=== PATIENT | male | born 1945 | race Caucasian/White ===

== ENCOUNTER 2022-10-22 22:24 | Inpatient (IN) | payer MEDICARE, OTHER, SELFPAY ==
[2022-10-22 22:30] VITALS: BMI 25.7
[2022-10-22 22:34] VITALS: BP 170/82; PULSE 73; RESP 18; TEMP 36.3; O2SAT 95
[2022-10-22 23:00] VITALS: RESP 18; O2SAT 98
[2022-10-22] MEDS: ondansetron 2 mg/ML SDV 2 mL 4 MG IVP (23:00)
[2022-10-22] MEDS: sodium chloride 0.9% 1,000 ML 999 ML IV (23:00)
[2022-10-22] MEDS: morphine 4 mg/mL SDV 1 mL IVP (23:00)
[2022-10-22 23:08] LABS: Basophils # 0.1 10^3/uL (0.0-0.1); Basophils % 0.5 %; Eosinophils # 0.2 10^3/uL (0.0-0.8); Hematocrit 41.3 % (42.0-52.0); Lymphocytes # 1.1 10^3/uL (0.8-4.8); Lymphocytes % 11.1 %; Mean Corpuscular HGB Conc 33.9 g/dL (30.0-36.0); Mean Corpuscular Hemoglobin 32.3 pg (28.0-34.0); Mean Corpuscular Volume 95.2 fl (80-94); Mean Platelet Volume 9.6 fL (7.4-10.4); Monocytes # 0.7 10^3/uL (0.2-0.9); Monocytes % 7.1 %; Neutrophils # 7.78 10^3/uL (1.8-7.7); Nucleated Red Blood Cells % 0 %; Platelet Count 221 10^3/cmm (130-400); Red Blood Count 4.34 10^6/uL (4.1-5.3); Red Cell Distribution Width 12.3 % (12.1-15.1); White Blood Count 9.9 10^3/uL (4.0-10.0)
--- NOTE | 2022-10-22 23:11 | ED_ITS ---
HPI - General Adult General: Chief complaint: General Medical Stated complaint: Hernia Pain Time Seen by Provider: 10/22/22 22:31 Source: patient Mode of arrival: ambulatory Limitations: no limitations History of Present Illness: 76-year-old male with has a history of a inguinal hernia in the past he states that he is felt a knot where the hernia is he has been having pain over the last 3 to 4 hours he states pain is sharp in nature he rates it a 5 out of 10. He has had nausea denies any vomiting denies any diarrhea denies any fevers. Associated symptoms: Deny chest pain, dyspnea, headache(s) or rash Review of Systems Const: Denies: fever(s), chills, body aches or change in appetite Eyes: Denies: blurry vision or eye discomfort ENMT: Denies: throat pain or dental pain Card: Denies: chest pain Resp: Denies: dyspnea GI: Reports: abdominal pain : Denies: dysuria Musc: Denies: neck pain or back pain Skin/Breast: Denies: rash Neuro: Denies: headache(s) Psych: Denies: depression [place]/Lymph: Denies: easy bruising All/Imm: Denies: urticaria PFSH ED PFSH: Medical History Right groin hernia Family History Other Diabetes Heart disease Denies family history of Anesthesia complication Bleeding disorder Social History Smoking and tobacco status: never smoked Alcohol intake: never Lives independently: Yes Household members: significant other Current occupational status: retired History of recent travel: No Physical Exam Const: COMMON NORMALS: no acute distress, patient oriented x3 and healthy appearing HENMT: COMMON NORMALS: normocephalic and atraumatic HEAD & SCALP: normocephalic and atraumatic Eye: COMMON NORMALS: Equal, round and reactive pupils present and EOMs intact bilaterally PUPIL: Yes Equal, round and reactive pupils present Neck/C-Spine: COMMON NORMALS: full ROM and supple Chest: COMMONS NORMALS: normal inspection of the chest and normal palpation of entire chest wall Resp: COMMON NORMALS: normal respiratory effort, No retractions, No use of accessory muscles and clear to auscultation bilaterally AUSCULTATION: clear to auscultation bilaterally Cardio: COMMON NORMALS: regular rate, regular rhythm and No murmurs present (Cardio) RATE: regular rate RHYTHM: regular rhythm GI: COMMON NORMALS: Normal to inspection, nondistended, normoactive bowel sounds present and Soft to palpation PALPATION: Yes Soft to palpation Extremity: COMMON NORMALS: normal to inspection and full ROM Neuro: COMMON NORMALS: patient oriented x3, moves all extremities and no focal motor deficits Psych: COMMON NORMALS: mental status grossly normal, Normal thought process present and cooperative THOUGHT PROCESS: Normal thought process present Skin: COMMON NORMALS: no rashes or lesions noted and no wounds GENERAL SKIN EXAM: no rashes or lesions noted Course Vital Signs: Vital signs: Vital Signs Temperature 97.4 F L 10/22/22 22:34 Pulse Rate 85 10/23/22 02:15 Respiratory Rate 17 10/23/22 02:15 Blood Pressure 165/98 10/23/22 02:15 Pulse Oximetry 97 10/23/22 02:15 Oxygen Delivery Me thod 10/22/22 22:34 MDM - General Adult Medical Decision Making Patient presents here with incarcerated right inguinal hernia is able to partial ly reduce the hernia still has a portion has not reduced Dr. Sierra came and saw the patient will admit at this time likely take to the OR in the morning. Patient's been stable while here. Lab Data 10/22/22 23:00 10/22/22 23:00 Radiology Impressions Abdomen/Pelvis CT 10/22/22 23:17 IMPRESSION: 1. Prominent fluid throughout the small bowel with borderline dilation to 3 cm, suggestive of an evolving obstruction, potentially low-grade, with a possible transition point secondary to a right inguinal hernia containing bowel, please correlate for reduction. 2. Prostate gland enlarged. 3. Cardiomegaly. 4. Coronary artery atherosclerotic calcifications. 5. Large hiatal hernia. 6. Bibasilar atelectasis versus minimal infiltrate. Laboratory Results WBC 9.9 10^3/uL (4.0-10.0) 10/22/22 23:00 RBC 4.34 10^6/uL (4.1-5.3) 10/22/22 23:00 Hgb 14.0 g/dL (11.7-16.6) 10/22/22 23:00 Hct 41.3 % (42.0-52.0) L 10/22/22 23:00 MCV 95.2 fl (80-94) H 10/22/22 23:00 MCH 32.3 pg (28.0-34.0) 10/22/22 23:00 MCHC 33.9 g/dL (30.0-36.0) 10/22/22 23:00 RDW 12.3 % (12.1-15.1) 10/22/22 23:00 Plt Count 221 10^3/cmm (130-400) 10/22/22 23:00 MPV 9.6 fL (7.4-10.4) 10/22/22 23:00 Neut % (Auto) 79.0 % 10/22/22 23:00 Lymph % (Auto) 11.1 % 10/22/22 23:00 [place] % (Auto) 7.1 % 10/22/22 23:00 Eos % (Auto) 2.0 % 10/22/22 23:00 Baso % (Auto) 0.5 % 10/22/22 23:00 Neut # (Auto) 7.78 10^3/uL (1.8-7.7) H 10/22/22 23:00 Lymph # (Auto) 1.1 10^3/uL (0.8-4.8) 10/22/22 23:00 [place] # (Auto) 0.7 10^3/uL (0.2-0.9) 10/22/22 23:00 Eos # (Auto) 0.2 10^3/uL (0.0-0.8) 10/22/22 23:00 Baso # (Auto) 0.1 10^3/uL (0.0-0.1) 10/22/22 23:00 Nucleated RBC % (auto) 0 % 10/22/22 23:00 Nucleated RBCs # 0.0 /100WBC 10/22/22 23:00 Sodium 137 mmol/L (136-145) 10/22/22 23:00 Potassium 3.8 mmol/L (3.5-5.1) 10/22/22 23:00 Chloride 99 mmol/L (98-107) 10/22/22 23:00 Carbon Dioxide 27 mmol/L (22-29) 10/22/22 23:00 Anion Gap 14.8 (5-19) 10/22/22 23:00 BUN 21 mg/dL (8-23) 10/22/22 23:00 Creatinine 0.9 mg/dL (0.7-1.2) 10/22/22 23:00 GFR Calculation Not Reportable 10/22/22 23:00 Glucose 135 mg/dL (65-115) H 10/22/22 23:00 Calculated Osmolality 289 mOsm/kg (285-295) 10/22/22 23:00 Lactate 1.1 mmol/L (0.5-2.2) 10/22/22 23:27 Calcium 9.2 mg/dL (8.5-10.5) 10/22/22 23:00 Total Bilirubin 0.5 mg/dL (0.15-1.2) 10/22/22 23:00 AST 24 U/L (0-40) 10/22/22 23:00 ALT 19 U/L (0-41) 10/22/22 23:00 Alkaline Phosphatase 100 U/L (40-130) 10/22/22 23:00 Total Protein 7.1 g/dL (6.6-8.7) 10/22/22 23:00 Albumin 4.3 g/dL (3.5-5.2) 10/22/22 23:00 Globulin 2.8 g/dL (1.3-4.6) 10/22/22 23:00 Lipase 20 U/L (13-60) 10/22/22 23:00 Urine Color Yellow (Yellow) 10/23/22 00:41 Urine Appearance Clear (CLEAR) 10/23/22 00:41 Urine pH 7 (5-7) 10/23/22 00:41 Ur Specific [place] 1.015 (1.005-1.030) 10/23/22 00:41 Urine Protein Neg (Negative) 10/23/22 00:41 Urine Glucose (UA) Norm (Normal) 10/23/22 00:41 Urine Ketones Negative (Negative) 10/23/22 00:41 Urine Blood Trace (Negative) H 10/23/22 00:41 Urine Nitrate Negative (Negative) 10/23/22 00:41 Urine Bilirubin Neg (Negative) 10/23/22 00:41 Urine Urobilinogen Norm mg/dL (Negative) 10/23/22 00:41 Ur Leukocyte Esterase Negative (Negative) 10/23/22 00:41 Urine RBC 0-4 /hpf (0-2) H 10/23/22 00:41 Urine WBC None /hpf (0-5) 10/23/22 00:41 Ur Squamous Epith Cells 0-4 /hpf (0-5) H 10/23/22 00:41 Amorphous Sediment Not Reportable 10/23/22 00:41 Urine Bacteria None /hpf (NONE) 10/23/22 00:41 Urine Mucus 1+ /hpf 10/23/22 00:41 Discharge Plan Discharge Patient Disposition: Admitted As Inpatient Clinical Impression: Incarcerated hernia Condition: Stable Coding Level of Care Code ED Grain Broker for Rocio Fwd Exam Comprehensive
--- NOTE | 2022-10-22 23:17 | CTR_ITS ---
PROCEDURE INFORMATION: Exam: CT Abdomen And Pelvis With Contrast Exam date and time: 10/23/2022 12:06 AM Age: 76 years old Clinical indication: Abdominal pain; Localized; Lower; Prior surgery; Surgery type: RT inguinal hernia; Patient HX: C/O RT groin pain. TECHNIQUE: Imaging protocol: Computed tomography of the abdomen and pelvis with contrast. Radiation optimization: All CT scans at this facility use at least one of these dose optimization techniques: automated exposure control; mA and/or kV adjustment per patient size (includes targeted exams where dose is matched to clinical indication); or iterative reconstruction. Contrast material: OMNI 350; Contrast volume: 100 ml; Contrast route: INTRAVENOUS (IV); COMPARISON: CT abdomen pelvis w con* [id number] 11/04/2019 2:07 PM RADIATION DOSE METRICS: Total DLP (mGy-cm): 684.03 FINDINGS: Lungs: Bibasilar atelectasis versus minimal infiltrate. Heart: Cardiomegaly. Coronary artery atherosclerotic calcifications. Diaphragm: Large hiatal hernia. Liver: Normal. No mass. Gallbladder and bile ducts: Normal. No calcified stones. No ductal dilation. Pancreas: Normal. No ductal dilation. Spleen: Normal. No splenomegaly. Adrenal glands: Normal. No mass. Kidneys and ureters: Normal. No hydronephrosis. Stomach and bowel: Unremarkable. No obstruction. No mucosal thickening. Appendix: No evidence of appendicitis. Intraperitoneal space: Unremarkable. No free air. No significant fluid collection. Vasculature: Unremarkable. No abdominal aortic aneurysm. Lymph nodes: Unremarkable. No enlarged lymph nodes. Urinary bladder: Unremarkable as visualized. Reproductive: Prostate gland enlarged. Bones/joints: Unremarkable. No acute fracture. Soft tissues: Prominent fluid throughout the small bowel with borderline dilation to 3 cm, suggestive of an evolving obstruction, potentially low-grade, with a possible transition point secondary to a right inguinal hernia containing bowel, please correlate for reduction. CT/CT abdomen pelvis w con* [id number] IMPRESSION: 1. Prominent fluid throughout the small bowel with borderline dilation to 3 cm, suggestive of an evolving obstruction, potentially low-grade, with a possible transition point secondary to a right inguinal hernia containing bowel, please correlate for reduction. 2. Prostate gland enlarged. 3. Cardiomegaly. 4. Coronary artery atherosclerotic calcifications. 5. Large hiatal hernia. 6. Bibasilar atelectasis versus minimal infiltrate.
[2022-10-22 23:29] LABS: Alanine Aminotransferase 19 U/L (0-41); Albumin Level 4.3 g/dL (3.5-5.2); Alkaline Phosphatase 100 U/L (40-130); Anion Gap 14.8 (5-19); Aspartate Amino Transferase 24 U/L (0-40); Blood Urea Nitrogen 21 mg/dL (8-23); Calcium 9.2 mg/dL (8.5-10.5); Carbon Dioxide 27 mmol/L (22-29); Chloride 99 mmol/L (98-107); Globulin 2.8 g/dL (1.3-4.6); Glucose 135 mg/dL (65-115); Lipase 20 U/L (13-60); Osmolality Calculated 289 mOsm/kg (285-295); Potassium 3.8 mmol/L (3.5-5.1); Sodium 137 mmol/L (136-145); Total Bilirubin 0.5 mg/dL (0.15-1.2); Total Protein 7.1 g/dL (6.6-8.7)
[2022-10-22 23:54] LABS: Lactate (Lactic Acid level) 1.1 mmol/L (0.5-2.2)
[2022-10-23] VITALS (27 sets, daily range): BP systolic 91–165; BP diastolic 48–119; PULSE 67–137; RESP 14–24; TEMP 36.4–37.1; O2SAT 93–100
[2022-10-23] MEDS: iohexol 350 mg/mL 500 mL Btl (per mL) IV (00:09)
[2022-10-23] MEDS: midazolam 1 mg/mL INJ 2 mL IVP (00:29)
[2022-10-23] MEDS: midazolam 1 mg/mL INJ 2 mL 0.5 MG IVP (01:12)
[2022-10-23] MEDS: HYDROmorphone 1 mg/mL INJ 1 mL IVP (01:14)
[2022-10-23 01:33] LABS: Add Urine Microscopic? YES; Bilirubin Urine Neg (Negative); Blood Urine Trace (Negative); Glucose Urine UA Norm (Normal); Ketones Urine Negative (Negative); Leukocyte Esterase Urine Negative (Negative); Nitrate Urine Negative (Negative); Protein Urine Neg (Negative); RBC Urine 0-4 /hpf (0-2); Specific Gravity, Urine 1.015 (1.005-1.030); Squamous Epithelial Cell Urine 0-4 /hpf (0-5); Urine Appearance Clear (CLEAR); Urine Color Yellow (Yellow); Urobilinogen Urine Norm (Negative); pH Urine 7 (5-7)
[2022-10-23 01:34] LABS: Add Urine Culture? No; Mucus Urine 1+ /hpf
--- NOTE | 2022-10-23 01:39 | P.HP_ITS ---
Providers/Chief Complaint Admitting Physician: Dharmesh Sierra MD Chief Complaint: Hernia Pain History of Present Illness Mr.Ed Jovany Joshi is a pleasant 76 year old male presents to the emergency department with worsening right groin pain likely related to underlying recurrent right inguinal hernia, patient has been lifting earlier today and has been experiencing worsening pain at that area for a day or so couple of attempts were done by Dr. Beltran to reduce the hernia and I believe he was able to reduce the acute on top of chronic component as by the time I am evaluating the patient is already feeling better. Further work-up was done that showed unremarkable blood, no evidence of leukocytosis or increased lactic acid, a CT of the abdomen pelvis was done and did show; 1. Prominent fluid throughout the small bowel with borderline dilation to 3 cm, suggestive of an evolving obstruction, potentially low-grade, with a possible transition point secondary to a right inguinal hernia containing bowel, please correlate for reduction. 2. Prostate gland enlarged. 3. Cardiomegaly. 4. Coronary artery atherosclerotic calcifications. 5. Large hiatal hernia. 6. Bibasilar atelectasis versus minimal infiltrate. Previous hernia repair with mesh placement 4 years ago. Patient was seen and evaluated in the ER room #13 Review of Systems General: Reports: 10 or more systems reviewed and unremarkable except in HPI and below Medications/Allergies Home Medications Medication Instructions Recorded Confirmed Last Taken Type aspirin 81 mg tablet,delayed 81 mg PO ONCE 11/28/19 11/30/19 Unknown History release atorvastatin 10 mg tablet 10 mg PO ONCE 11/28/19 11/30/19 Unknown History cholecalciferol (vitamin D3) 10 400 unit PO ONCE 11/28/19 11/30/19 Unknown History mcg (400 unit) capsule lisinopril 2.5 mg tablet 2.5 mg PO ONCE 11/28/19 11/30/19 Unknown History multivitamin 1 tab PO QAM 11/28/19 11/30/19 Unknown History garlic 1,000 mg capsule 1,000 mg PO DAILY 10/23/22 10/23/22 10/22/22 12:00 History Allergies Allergy/AdvReac Type Severity Reaction Status Date / Time No Known Allergies Allergy Verified 11/28/19 15:09 PFSH Acute PFSH: Medical History Right groin hernia Family History Other Diabetes Heart disease Denies family history of Anesthesia complication Bleeding disorder Social History Smoking and tobacco status: never smoked Alcohol intake: never Lives independently: Yes Household members: significant other Current occupational status: retired History of recent travel: No Vitals/I&O/Wt Last Vital Signs Temp 97.4 F L 10/22/22 22:34 Pulse 73 10/22/22 22:34 Resp 15 10/23/22 01:14 BP 170/82 10/22/22 22:34 Pulse Ox 96 10/23/22 01:14 O2 Del Method 10/22/22 22:34 Weight last 48 hrs Weight 200 lb Physical Exam Narrative: Patient is conscious alert oriented X3 No apparent distress BMI 25.7 Head and neck examination PERRLA no masses no cervical lymphadenopathy no jaundice Cardiac examination audible S1-S2 no murmurs no gallops no arrhythmias Chest is clear bilateral,abscence of Rhonchi or wheezes,no surgical emphysema Abdomen nontender nondistended soft no organomegaly guarding or rigidity/no signs of peritonitis Right chronic incarcerated hernia partially reducible Extremities no cyanosis no clubbing no edema Data 10/22/22 23:00 10/22/22 23:00 A&P Assessment and plan (1) Right groin hernia: Attempted to reduce partially bedside patient had some relief Plan to take the patient for surgery for open right inguinal hernia repair with possible mesh placement IV antibiotic N.p.o. Ice packs on the right groin After thorough history physical examination and reviewing the chart and images of the CT scan with my personal interpretation likely the patient has an underl giovanny chronic incarcerated hernia as I do not see any signs of edema or pneumatosis, I counseled the patient for Right open groin hernia repair with mesh placement, were indications, risks including risk of injuring the contents of the spermatic cord,vas deferens and blood supply of the testicle, alt ernatives and benefits.Patient did agree to proceed with surgery Informed consent per chart Assurance and education All questions have been answered and all concerns have been addressed to patient's satisfaction. Attestations Medical Necessity Statement*: Observation status Coding Level of Care Code Acute Concert Or Lecture Hall Manager for g Fwd Diagnoses Right groin hernia K40.90
[2022-10-23] MEDS: piperacillin-tazobactam 3.375 GM in sodium chloride 0.9% (plus) 50 ML IV ×3 (04:49→19:40)
[2022-10-23] MEDS: sodium chloride 0.9% 1,000 ML 125 ML IV (05:13)
[2022-10-23] MEDS: morphine 4 mg/mL SDV 1 mL 2 MG IVP ×2 (05:16→09:18)
[2022-10-23] MEDS: ondansetron 2 mg/ML SDV 2 mL 4 MG IVP ×2 (07:39→10:58)
[2022-10-23] MEDS: lisinopril 2.5 mg Tablet PO (08:12)
--- NOTE | 2022-10-23 10:37 | PC.NURSE ---
surgical pt taken down to surgery.
[2022-10-23] MEDS: sodium chloride 0.9% 1,000 ML 30 ML IV (10:58)
--- NOTE | 2022-10-23 11:12 | P.ANESASSM_ITS ---
Pre-Anesthetic Assessment Height/Weight: Height 1.88 m Weight 90.718 kg Temp Pulse Resp BP Pulse Ox O2 Del Method 98.7 F 76 16 134/81 96 10/23/22 10:47 10/23/22 10:47 10/23/22 10:47 10/23/22 10:47 10/23/22 10:47 10/23/22 10:47 Operation Date: 10/23/22 12:00 Proposed Procedures p Inguinal Hernia Repair Open Inguinal Hernia Repair with Possible Mesh placement(Right) - Dharmesh Sierra MD Familial anesthetic complications: None Was Beta Kamron taken within 24 hours: N/A Was Clonidine taken within 24 hours: N/A Last intake: Intake Last Liquid Date 10/22/22 Last Liquid Time 21:00 Last Solid Date 10/22/22 Last Solid Time 16:00 Social No alcohol and No tobacco Exam alert, oriented x 3, clear to auscultation bilaterally and regular rate & rhythm Airway Mallampati: Class I Dentition: full CV/HEM Hypertension incidental cardiomegaly seen on CT - patient states no heart history GI Hiatal Hernia (seen on abdominal CT - patient denies experiencing GERD) Last vomited food this morning. States he vomited up a little stomach acid just earlier. Anesthetic Plan ASA status: 3 Anesthesia: General Other: RSI Risk of > 500 ml blood loss (7ml/kg in children): No Medications/Allergies Home Medications Medication Instructions Recorded Confirmed Last Taken Type aspirin 81 mg tablet,delayed 81 mg PO DAILY 11/28/19 10/23/22 10/22/22 08:00 History release atorvastatin 10 mg tablet 10 mg PO DAILY 11/28/19 10/23/22 10/22/22 08:00 History cholecalciferol (vitamin D3) 10 400 unit PO DAILY 11/28/19 10/23/22 10/22/22 08:00 History mcg (400 unit) capsule lisinopril 2.5 mg tablet 2.5 mg PO DAILY 11/28/19 10/23/22 10/22/22 08:00 History multivitamin 1 tab PO QAM 11/28/19 10/23/22 10/22/22 12:00 History garlic 1,000 mg capsule 1,000 mg PO DAILY 10/23/22 10/23/22 10/22/22 12:00 History Allergies Allergy/AdvReac Type Severity Reaction Status Date / Time No Known Allergies Allergy Verified 11/28/19 15:09 Current Medications Generic Name Dose Route Start Last Admin Trade Name Freq PRN Reason Stop Dose Admin Piperacillin Sod/Tazobactam 50 mls @ 12.5 mls/hr 10/23/22 02:30 10/23/22 09:13 Sod 3.375 gm/ Sodium Chloride IV Infused Q8H ANABEL Infusion Protocol Sodium Chloride 1,000 mls @ 125 mls/hr 10/23/22 05:00 10/23/22 05:13 Sodium Chloride 0.9% IV 125 mls/hr .Q8H ANABEL Administration Sodium Chloride 1,000 mls @ 30 mls/hr 10/23/22 10:45 10/23/22 10:58 Sodium Chloride 0.9% IV 10/24/22 10:44 30 mls/hr .Q24H ANABEL Administration Lisinopril 2.5 mg 10/23/22 09:00 10/23/22 08:12 Lisinopril 2.5 Mg Tablet PO 2.5 mg DAILY ANABEL Administration Morphine Sulfate 2 mg 10/23/22 02:13 10/23/22 09:18 Morphine 4 Mg/Ml Sdv 1 Ml IVP 2 mg Q4H PRN Administration SEVERE PAIN Ondansetron HCl 4 mg 10/23/22 06:30 10/23/22 07:39 Ondansetron 2 Mg/Ml Sdv 2 Ml IVP 4 mg Q6H PRN Administration NAUSEA AND VOMITING Ondansetron HCl 4 mg 10/23/22 10:45 10/23/22 10:58 Ondansetron 2 Mg/Ml Sdv 2 Ml IVP 4 mg Q5M PRN Administration NAUSEA AND VOMITING PFSH Anesthesia Medical History Right groin hernia Family History Other Diabetes Heart disease Denies family history of Anesthesia complication Bleeding disorder Social History Smoking and tobacco status: never smoked Alcohol intake: never Lives independently: Yes Household members: significant other Current occupational status: retired History of recent travel: No Data Anesthesia 10/22/22 23:00 10/22/22 23:00 Short CBC 10/22/22 Range/Units 23:00 WBC 9.9 (4.0-10.0) 10^3/uL Hgb 14.0 (11.7-16.6) g/dL Hct 41.3 L (42.0-52.0) % MCV 95.2 H (80-94) fl Plt Count 221 (130-400) 10^3/cmm Neut % (Auto) 79.0 % Neut # (Auto) 7.78 H (1.8-7.7) 10^3/uL BMP 10/22/22 23:00 Sodium 137 Potassium 3.8 Chloride 99 Carbon Dioxide 27 BUN 21 Creatinine 0.9 Glucose 135 H Calcium 9.2 Liver Function 10/22/22 Range/Units 23:00 Total Bilirubin 0.5 (0.15-1.2) mg/dL AST 24 (0-40) U/L ALT 19 (0-41) U/L Alkaline Phosphatase 100 (40-130) U/L Albumin 4.3 (3.5-5.2) g/dL Urine 10/23/22 Range/Units 00:41 Urine Color Yellow (Yellow) Urine Appearance Clear (CLEAR) Urine pH 7 (5-7) Ur Specific [place] 1.015 (1.005-1.030) Urine Protein Neg (Negative) Urine Glucose (UA) Norm (Normal) Urine Ketones Negative (Negative) Urine Nitrate Negative (Negative) Urine Bilirubin Neg (Negative) Ur Leukocyte Esterase Negative (Negative) Urine RBC 0-4 H (0-2) /hpf Urine WBC None (0-5) /hpf Cardiac Studies: No Data to Display
[2022-10-23] MEDS: lidocaine 1% INJ 20 mL INJECTION (12:37)
[2022-10-23] MEDS: acetaminophen 1,000 MG/100 ML PIGGYBACK 400 MG IV (12:40)
--- NOTE | 2022-10-23 13:15 | SUR.OPER ---
[id number] dr daniels requested a consult with dr barnes.
--- NOTE | 2022-10-23 13:16 | SUR.OPER ---
1314 dr barnes at bedside
--- NOTE | 2022-10-23 13:45 | XRR_ITS ---
PROCEDURE INFORMATION: Exam: XR Abdomen Exam date and time: 10/23/2022 1:51 PM Age: 76 years old Clinical indication: Screening exam; Post surgical status; Instrument count; Prior surgery; Surgery date: Post-operative (0-2 days) TECHNIQUE: Imaging protocol: Radiologic exam of the abdomen. Views: Frontal supine view of the abdomen. 1 View. COMPARISON: CT abdomen pelvis w con* [id number] 10/23/2022 12:06 AM FINDINGS: Tubes, catheters and devices: No radiopaque foreign body such as an instrument or needle. Gastrointestinal tract: Gas in small bowel loops, less distended than on the prior comparison exam. Organs: Excreted contrast in the urinary bladder. Bones/joints: Curvature of the lumbar spine convex to the right associated with multilevel degenerative changes. Soft tissues: Recent right groin surgery with an incision closed with skin lorenza. XR/XR abdomen 1V* [id number] IMPRESSION: No radiopaque foreign body.
--- NOTE | 2022-10-23 13:53 | P.OP_ITS ---
Operative Report Date of procedure: October 23, 2022 Pre-op diagnosis: Right groin hernia Post-op diagnosis: Right femoral hernia with incarcerated peritoneal sac,no evidence of bowel ischemia Procedure done: Exploration of the right groin Right open femoral hernia repair without mesh placement Right femoral vein ligation(see separate dictation for Dr. Zepeda) Specimens removed/disposition: Right femoral hernia sac Surgeon: Dharmesh Sierra MD-Dr. Zepeda Surgeon Tank Car Cleaner Tank Car Cleaner: Surgical rafi Lowery Estimated blood loss (mL): 100 Procedure: Patient was identified in the holding area and right groin was marked by myself, In-N-Out catheter was inserted revealing clear urine prior to the procedure, antibiotic was given with induction, endotracheal tube was placed per anesthesia, prep and drape of both groins and lower abdomen and scrotum including the genitalia was done under the usual sterile technique. Timeout was done verifying the patient's name/date of /planned procedure destination after the procedure, all were in agreement. SCDs confirmed to be functioning, preoperative antibiotics administered per protocol, and beta shadi protocol was confirmed. I started with a right groin incision 1-1/2 finger above the inguinal ligament towards the pubic tubercle coinciding with the previous right groin scar, noticed to have an incarcerated hernia sac towards the medial aspect of the groin, extensive scarring was noticed, during dissection inadvertently the right femoral vein was injured during dissection yet proximal and distal control was achieved immediately, the dissection revealed that the hernia sac is a femoral hernia sac. There was no other hernia evident. At This point I decided to open the hernia sac trim the edges as it did show some ischemic changes and was sent for permanent pathology, the communication with the abdominal cavity revealed no evidence of succus or serosanguineous output and the bowel was maintained to be viable. In fact there was no evidence of incarcerated bowels. I elected to close the remaining viable sac using continuous 2-0 Vicryl that was reduced back to the abdominal cavity without complications. Extensive scar tissues were appreciated. And meticulous dissection was done. Appropriate dissection and exposure I elected to call for Dr. Zepeda for further evaluation of the proximal and distal portions of the femoral vein for potential further dissection and repair versus ligation, please see separate dictation for further vascular surgery portion of the procedure. Before arrival with Dr. Zepeda already placed interrupted PDS sutures to close the femoral canal. Not encroaching on any neurovascular compartment. Copious and thorough irrigation was achieved there was no evidence of bleeding and appropriate closure in layers using 2-0 Vicryl in a continuous fashion followed by skin lorenza. Lidocaine 1% was injected A KUB was obtained towards the end of the procedure to confirm no evidence of retained foreign objects Also counts of instruments, sponges and needles were completed at the end of the procedure. I elected to place a [place] cath at the end of the procedure revealing clear urine. Scrotal support was then placed Intact dorsalis pedis artery pulsation was appreciated towards the end of the procedure of the right lower extremity Patient tolerated the procedure well and was taken to the recovery area after extubation I was present for the whole entire procedure
[2022-10-23] MEDS: fentaNYL 50 mcg/mL INJ 2mL IVP ×2 (14:17→14:25)
[2022-10-23] MEDS: haloperidol inj 5 mg/mL INJ 1 mL IVP (14:40)
--- NOTE | 2022-10-23 14:57 | SUR.PHASEI ---
14:13 RECEIVED PT FROM OR STAFF.AIRWAY PATENT WITH GOOD VENTILATION. PT APPEARS CONFUSED PULLING AT BLANKETS . 14:17 MEDICATED PER ANESTHESIA. 14:40 RE-MEDICATED PER DOCTOR MAURO.
[2022-10-23] MEDS: midazolam 1 mg/mL INJ 2 mL 2 MG IVP (15:15)
--- NOTE | 2022-10-23 15:48 | SUR.PHASEI ---
15:30 PT TRANSPORTED TO BED 262. BEDSIDE REPORT GIVEN TO TL GILBERT. PT WITH ROM AND SENSATION ALL 4 EXTREMITIES.DRESSING INTACT WITH NO FURTHER DRAINAGE NOTED. PT RESPONDS TO VERBAL, STATING HE WANTS SOMETHING TO DRINK. ICE CHIPS GIVEN. SIDE RAILS UP.
--- NOTE | 2022-10-23 15:52 | ANE.PACU2 ---
Inpatient post-anesthesia follow up: Airway intact: Yes Vital signs: Temperature 98.7 F Pulse Rate 82 Respiratory Rate 18 Blood Pressure 103/58 Pulse Oximetry 97 Oxygen Delivery Me thod Nasal Cannula Oxygen Flow Rate 4 Fraction of Inspir ed Oxygen Hydration adequate: Yes Nausea and vomiting: No Pain level: 1 Mental status: Baseline
[2022-10-23] MEDS: enoxaparin 40 mg/0.4 mL Syringe SUBCUT (16:49)
[2022-10-23] MEDS: sodium chloride 0.9% 1,000 ML 75 ML IV (19:40)
--- NOTE | 2022-10-23 20:42 | PC.NURSE ---
Patient is very anxious about going home. He keeps tugging at his catheter wanting it out. Wanting to go pee in the bathroom so that way he can go home. He is showing signs of confusion on to why he cant go home and why he has a catheter. I helped him set up on the side of the bed because he wanted to get up. Patient is now laying back in the bed.
[2022-10-23] MEDS: HYDROcodone-acetaminophen 5-325 mg Tablet 1 TAB PO (21:43)
[2022-10-24] VITALS: BP 116/68; PULSE 81; RESP 16; TEMP 36.6; O2SAT 95
[2022-10-24 02:13] LABS: Hemoglobin 11.4 g/dL (11.7-16.6)
[2022-10-24 02:33] LABS: Anion Gap 10.3 (5-19); Blood Urea Nitrogen 15 mg/dL (8-23); Calcium 8.4 mg/dL (8.5-10.5); Carbon Dioxide 24 mmol/L (22-29); Chloride 106 mmol/L (98-107); Glucose 137 mg/dL (65-115); Osmolality Calculated 285 mOsm/kg (285-295); Potassium 4.3 mmol/L (3.5-5.1); Sodium 136 mmol/L (136-145)
[2022-10-24 02:45] VITALS: BP 131/69; PULSE 89; RESP 18; TEMP 36.7; O2SAT 95
[2022-10-24] MEDS: piperacillin-tazobactam 3.375 GM in sodium chloride 0.9% (plus) 50 ML IV (03:39)
[2022-10-24 04:00] VITALS: BP 120/60; PULSE 65; RESP 18; TEMP 36.7; O2SAT 95
[2022-10-24] MEDS: HYDROcodone-acetaminophen 5-325 mg Tablet 1 TAB PO (04:43)
--- NOTE | 2022-10-24 06:49 | P.PN_ITS ---
Subjective Subjective: Patient showed some delirium postoperatively yesterday. A sitter one-on-one was brought as a precautionary measure. Per nursing staff overnight no acute events. Continues to have stable vital signs, tolerating p.o. intake and adequate urine output. Medications: Reviewed: Yes Vitals/I&O/Wt Last Vital Signs Temp 98.1 F 10/24/22 04:00 Pulse 65 10/24/22 04:00 Resp 18 10/24/22 04:00 BP 120/60 10/24/22 04:00 Pulse Ox 95 10/24/22 04:00 O2 Del Method 10/24/22 02:45 O2 Flow Rate 2 10/24/22 02:45 10/23/22 10/23/22 10/24/22 14:59 22:59 06:59 Intake Total 600 / 600 1491 / 2091 530 / 2621 Output Total 475 / 475 450 / 925 800 / 1725 Balance 125 / 125 1041 / 1166 -270 / 896 Weight last 48 hrs Weight 200 lb Physical Exam Narrative: Patient is conscious alert oriented X3 No apparent distress BMI 26 Head and neck examination PERRLA no masses no cervical lymphadenopathy no jaundice Cardiac examination audible S1-S2 no murmurs no gallops no arrhythmias Chest is clear bilateral,abscence of Rhonchi or wheezes,no surgical emphysema Abdomen nontender nondistended soft no organomegaly guarding or rigidity/no signs of peritonitis Mild bruise at the incision site but no hematoma Extremities no cyanosis no clubbing no edema Urinary Catheter Management: Straight: Cath Placed During This Visit: no Reason for Continuing Indwelling Catheter: Required Immobilization for Trauma or Surgery or Anesthesia Data 10/24/22 01:41 10/24/22 01:41 A&P Assessment and plan (1) Incarcerated hernia: Assessment 76 years old gentleman status post open right groin exploration with femoral her cayla repair and ligation of femoral vein. Plan DC Polk catheter Advance diet as tolerated Continue close monitoring (sitter one-on-one) Reevaluate through today for potential discharge home Wean oxygen to room air Continue antimicrobial therapy Assurance and education All questions have been answered and all concerns have been addressed to patient's satisfaction. Attestations Medical Necessity Statement*: Patient requiring inpatient hospitalization passing 2 midnights for perioperative care Coding Level of Care Code Acute Grout Worker for Chg Fwd Diagnoses Incarcerated hernia K46.0
[2022-10-24 08:00] VITALS: BP 139/54; PULSE 73; RESP 15; O2SAT 99
--- NOTE | 2022-10-24 10:26 | USCV_ITS ---
Adi, Ed Age: 76 Gender: M : 1945 Exam Date: 10/24/2022 11:04 Ordering Phys: Dharmesh Sierra MD Technologist: CT Exam Location: [facility] – [place] Indication: hernia repair sx yesterday HISTORY: hernia repair sx yesterday, rt groin PROCEDURES: Venous duplex imaging was performed in only the right lower extremity. FINDINGS: There is dvt involving the rt cfv, fv prx and prof. This appears acute CONCLUSIONS Acute DVT right common femoral, femoral and deep femoral veins. Popliteal appears patent Small pTV and peroneal appear patent. D/w Dr. Trujillo 10/24/22 at 1340 Jerman Kyle MD (Electronically Signed) Final Date: 24 October 2022 13:48 Amended: 24 October 2022 13:50 C
--- NOTE | 2022-10-24 10:29 | PC.CHAP ---
Pastoral Care Encounter/Spiritual Assessment Type of Contact [] Declined it architecture analyst visit [] Patient/Family/Request visit [] Outpatient visit [] Follow-up visit [] Physician referral [] Code/Alert [x] Routine visit [] Staff referral [] Actively dying [] Patient sleeping [] Family support [] [] Out of room [] Palliative care [] [x] Receiving care in room [] Pre-surgical visit [] Trauma [] Long length of stay [] ICU visit [] Other: Relational/Emotional Strength [] Patient feels connected with others/family/visitors/staff [x] Distress [x] Loneliness/isolation [] Abandonment Spirituality of Patient [x] Person of Myranda [] Attends Lutheran of their Myranda [] Believes in Prayer [] Reads Bible or Sikhism materials [] There are Spiritual issues to be addressed Time Signal Wirer Interventions [x] Prayer [] Active listening [] Non-anxious presence [x] Spiritual/emotional support [] Crisis/trauma care [] Spiritual counseling [] Bereavement support [] Provided bereavement packet [] Provided Bible/devotional materials [] Provided toy/stuffed animal, coloring book to patient or family member [] Provided Communion [] Anointing/[place] [] Salvation [x] Completed spiritual assessment [] Other: Impact on Illness or Injury [x] Angry [] Fearful [x] Anxious [] Often cries [] Exhaustion [] Unable to work [] Unable to attend latter-day [] Unable to walk/stand [] Unable to read [] Unable to drive [] Unable to eat/drink [] Unable to sleep [] Unable to be with family [] Patient intubated [] Other: Summary Time spent with patient 10 min
--- NOTE | 2022-10-24 11:07 | PM.CONSULT ---
Providers/Reason For Consult Consulting Physician/Specialty*: German Trujillo MD Reason for Consult*: Delerium Requesting Physician: Dr. Harris Attending Physician: Dharmesh Sierra MD History of Present Illness History of Present Illness Ed Jovany Joshi is a 76 year old male with past medical history of hypertension hyperlipidemia who came in to the hospital for a right inguinal hernia repair. This was accomplished yesterday. I am consulted today secondary to concerns of delirium. Patient has been getting up frequently, walking the halls, wanting to go home. He reports his loved 1 at home requires his care. It appears he received a dose of Haldol yesterday, directly after the surgery. He has gotten some doses of morphine, and hydrocodone. Last dose of morphine was yesterday, hydrocodone this morning at 440. He denies any complaints. He reports that he has been told he could leave today, if he is able to urinate. He has tried to drink some water to facilitate this. He denies any active pain currently. Review of Systems General: Reports: 10 or more systems reviewed and unremarkable except in HPI and below Const: Denies: fever(s) Eyes: Denies: change in vision ENMT: Denies: throat pain Card: Denies: chest pain Resp: Denies: dyspnea GI: Denies: nausea or vomiting : Denies: flank pain Musc: Denies: neck pain Skin/Breast: Denies: rash Neuro: Denies: headache(s) Psych: Reports: anxiety Endo: Denies: polyuria Franklyn/Lymph: Denies: easy bruising All/Imm: Denies: urticaria Medications/Allergies Home Medications Medication Instructions Recorded Confirmed Last Taken Type aspirin 81 mg tablet,delayed 81 mg PO DAILY 11/28/19 10/23/22 10/22/22 08:00 History release atorvastatin 10 mg tablet 10 mg PO DAILY 11/28/19 10/23/22 10/22/22 08:00 History cholecalciferol (vitamin D3) 10 400 unit PO DAILY 11/28/19 10/23/22 10/22/22 08:00 History mcg (400 unit) capsule lisinopril 2.5 mg tablet 2.5 mg PO DAILY 11/28/19 10/23/22 10/22/22 08:00 History multivitamin 1 tab PO QAM 11/28/19 10/23/2222 12:00 History garlic 1,000 mg capsule 1,000 mg PO DAILY 10/23/22 10/23/22 10/22/22 12:00 History Allergies Allergy/AdvReac Type Severity Reaction Status Date / Time No Known Allergies Allergy Verified 11/28/19 15:09 Current Medications Generic Name Dose Route Start Last Admin Trade Name Freq PRN Reason Stop Dose Admin Hydrocodone Bitart/Acetaminophen 1 tab 10/23/22 16:10 10/24/22 04:43 Hydrocodone-Acetaminophen 5-325 Mg Tablet PO 1 tab Q4H PRN Administration MODERATE PAIN Enoxaparin Sodium 40 mg 10/23/22 16:10 10/23/22 16:49 Enoxaparin 40 Mg/0.4 Ml Syringe SUBCUT 40 mg Q24H ANABEL Administration Piperacillin Sod/Tazobactam 50 mls @ 12.5 mls/hr 10/23/22 02:30 10/24/22 03:39 Sod 3.375 gm/ Sodium Chloride IV 12.5 mls/hr Q8H ANABEL Administration Protocol Sodium Chloride 1,000 mls @ 75 mls/hr 10/23/22 17:00 10/23/22 19:40 Sodium Chloride 0.9% IV 75 mls/hr .[id number] ANABEL Administration Lisinopril 2.5 mg 10/23/22 09:00 10/24/22 10:28 Lisinopril 2.5 Mg Tablet PO Not Given DAILY ANABEL Morphine Sulfate 2 mg 10/23/22 02:13 10/23/22 09:18 Morphine 4 Mg/Ml Sdv 1 Ml IVP 2 mg Q4H PRN Administration SEVERE PAIN Ondansetron HCl 4 mg 10/23/22 06:30 10/23/22 07:39 Ondansetron 2 Mg/Ml Sdv 2 Ml IVP 4 mg Q6H PRN Administration NAUSEA AND VOMITING PFSH Acute PFSH: Medical History (Updated 10/24/22 @ 11:31 by German Trujillo MD) Hypercholesteremia Hypertension Right groin hernia Surgical History History of right inguinal hernia repair (11/04/19) Dr. Sierra Family History Other Diabetes Heart disease Denies family history of Anesthesia complication Bleeding disorder Social History Smoking and tobacco status: never smoked Alcohol intake: never Lives independently: Yes Household members: significant other Current occupational status: retired History of recent travel: No Vitals/I&O/Wt Last Vital Signs Temp 98.1 F 10/24/22 04:00 Pulse 73 10/24/22 08:00 Resp 15 10/24/22 08:00 BP 139/54 10/24/22 08:00 Pulse Ox 99 10/24/22 08:00 O2 Del Method 10/24/22 08:00 O2 Flow Rate 2 10/24/22 02:45 10/23/22 10/24/22 10/24/22 22:59 06:59 14:59 Intake Total 1491 / 2091 530 / 2621 240 / 240 Output Total 450 / 925 800 / 1725 500 / 500 Balance 1041 / 1166 -270 / 896 -260 / -260 Weight last 48 hrs Weight 90.718 kg Physical Exam Narrative: General exam is a conversant white male, who reports he is hoping he can urinate soon so he can go home. Neurologic: No obvious focal deficits. He is alert and oriented x3. Initially he said the month was September, but self corrected relatively quickly to October 24. He is aware of the year, where he is at, HEENT: Atraumatic and normocephalic. Pupils equally round. Oropharynx clear. Neck is supple no lymphadenopathy or thyromegaly Cardiovascular regular rate and rhythm without murmur, no S3 or S4 Lungs clear no wheezing or crackles Abdomen is soft with positive bowel sounds. No obvious organomegaly. Dressing is present right groin. Extremities no cyanosis clubbing. Trace edema. Cap refill brisk Skin no rash Urinary Catheter Management: Straight: Cath Placed During This Visit: no Reason for Continuing Indwelling Catheter: Required Immobilization for Trauma or Surgery or Anesthesia Data 10/24/22 01:41 10/24/22 01:41 Other Labs: TSH, B12 have been ordered Bladder scan has been ordered Venous duplex is currently being done in the room, and technologist alerts me it is positive for DVT. A&P Assessment and plan (1) Delirium: It sounds like the patient had some significant delirium yesterday. His baseline mental status is probably at baseline after I had an extensive discussion with his designated first contact Kajal. She is willing to come up and assess this as well to confirm it. Avoid any narcotics He may have some underlying dementia with his recall being impaired. Suggest he follow-up with his primary care provider regarding this. [facility] and folate were ordered on blood in lab. These were normal (2) DVT (deep venous thrombosis): From my understanding the vein had to be ligated with his hernia repair DVT is noted by tech Initiate Eliquis, 10 mg twice daily. Risks and benefits discussed with caregiver. Dose should be reduced to 5 mg twice daily in 1 week. Plan Other medical problems as outlined in past medical history Thank you for this consultation Consult Attestations Medical Necessity Statement: As per primary Coding Level of Care Code Acute Will Call Order Clerk for Rocio Thomas Diagnoses Delirium R41.0 DVT (deep venous thrombosis) I82.409
[2022-10-24 11:48] LABS: Thyroid Stimulating Hormone 0.78 uIU/mL (0.27-4.20); Vitamin B12 257 pg/mL (232-1245)
[2022-10-24 15:24] VITALS: BP 143/76; PULSE 85; RESP 15; TEMP 36.6; O2SAT 97
--- NOTE | 2022-10-24 16:01 | P.DS_ITS ---
Discharge Providers Date of Admission: 10/23/22 17:44 Date of Discharge: October 24, 2022 Attending Provider at Admission: Dharmesh Sierra MD Attending Provider at Discharge: Dharmesh Sierra MD Diagnoses at Discharge Discharge Diagnosis (1) Delirium: Details from hospital stay: Resolving Avoid narcotics Status: Inactive (2) DVT (deep venous thrombosis): Details from hospital stay: Patient is being discharged on therapeutic anticoagulation per hospitalist service Status: Inactive Reason for Visit Reason for Visit: Hernia Pain Brief History: Mr.Ed Jovany Joshi is a pleasant 76 year old male presents to the emergency department with worsening right groin pain likely related to underlying recurrent right inguinal hernia, patient has been lifting earlier today and has been experiencing worsening pain at that area for a day or so couple of attempts were done by Dr. Beltran to reduce the hernia and I believe he was able to reduce the acute on top of chronic component as by the time I am evaluating the patient is already feeling better.? Further work-up was done that showed unremarkable blood, no evidence of leukocytosis or increased lactic acid, a CT of the abdomen pelvis was done and did show; 1. Prominent fluid throughout the small bowel with borderline dilation to 3 cm, suggestive of an evolving obstruction, potentially low-grade, with a possible transition point secondary to a right inguinal hernia containing bowel, please correlate for reduction. 2. Prostate gland enlarged. 3. Cardiomegaly. 4. Coronary artery atherosclerotic calcifications. 5. Large hiatal hernia. 6. Bibasilar atelectasis versus minimal infiltrate. Previous hernia repair with mesh placement 4 years ago. Patient was seen and evaluated in the ER room #13 Subsequently the patient undergone right groin exploration and was found to have incarcerated preperitoneal fat/hernial sac with viable bowel. Hospital Course Hospital Course Patient undergone right groin exploration with repair of right femoral hernia that was discovered at the time of surgery. As prior imaging studies was sugge stive of right inguinal hernia containing bowel which was not the case as intraoperatively it was determined that the patient has right femoral hernia with protrusion of peritoneum through the femoral canal that was appreciated with some ischemic changes but no evidence of gangrene and the sac was opened and showed nonincarcerated viable bowel. Patient had previous right inguinal hernia repair back in 2019 with mesh and a cone was placed and he did develop over time extensive scarring of the right groin area,during the dissection the right groin, the right femoral vein was inadvertently injured which required proximal and distal control where vascular surgery was consulted intraoperatively and their professional opinion was to proceed with ligation rather than reanastomosis of the vessel because of the concern of being under tension and further dissection proximally can be complicated due to the previous scar tissues. At that point the decision was done to ligate both stumps and hemostasis was achieved where a primary repair of the femoral hernia was done after excising the unhealthy part of the peritoneal sac. And was sent off for pathology. Patient postoperatively overall did well yet he did have acute delirium episode were required one-on-one sitter yet his vital signs has been stable, tolerating p.o. intake and adequate urine output. Hospitalist was consulted for evaluation regarding the delirium and was recommended at this time that the patient is recovering slowly and no further intervention would be required necessarily. I elected to obtain an ultrasound of the right lower extremity as a venous duplex study that did show; Acute DVT right common femoral, femoral and deep femoral veins. ?Popliteal appears patent ?Small pTV and peroneal appear patent. Subsequently the patient was placed on therapeutic dose of Eliquis in the form of 10 mg twice daily for a week to be followed by 5 mg twice daily per hospitalist's recommendation. In the interim patient had received Lovenox 40 mg subcutaneous daily. Patient continued to do well and appropriately functioning and after further evaluation today in the presence of his caregiver Ms. Rdz it was determined that it would be safe to discharge the patient home with being supervised with Ms. Rdz and an Jaylen wrap was applied onto the right lower extremity and his home was contacted to provide the patient with the appropriate light compressions of the right lower extremity as an outpatient. Patient was ambulatory with some assistance. Physical Exam Narrative: Patient is conscious alert oriented X3 No apparent distress BMI 26 Head and neck examination PERRLA no masses no cervical lymphadenopathy no jaundice Cardiac examination audible S1-S2 no murmurs no gallops no arrhythmias Chest is clear bilateral,abscence of Rhonchi or wheezes,no surgical emphysema Abdomen nontender nondistended soft no organomegaly guarding or rigidity/no signs of peritonitis Mild bruise at the incision site but no hematoma Mild to moderate swelling of the right thigh and calf region but no evidence of compartment syndrome Jaylen wrap application was done in the presence of nursing staff Melida and appropriate education was given to Ms. Rdz patient is caregiver Urinary Catheter Management: Straight: Cath Placed During This Visit: no Reason for Continuing Indwelling Catheter: Required Immobilization for Trauma or Surgery or Anesthesia Discharge Data Studies Completed and Pending Completed Studies During Hospitalization Category Date Time Status CT abdomen pelvis w con* [id number] Stat Cat Scan 10/22/22 23:17 Completed XR abdomen 1V* [id number] Routine Exams 10/23/22 13:45 Completed US venous duplex lower extremity RT [CV venous duplex Ultrasound 10/24/22 10:26 [place] [id number]] Urgent Pending at discharge Category Date Time Status Pathology: Surgical [PTH] Routine Pth 10/23/22 14:32 Received Radiology Impressions Abdomen/Pelvis CT 10/22/22 23:17 IMPRESSION: 1. Prominent fluid throughout the small bowel with borderline dilation to 3 cm, suggestive of an evolving obstruction, potentially low-grade, with a possible transition point secondary to a right inguinal hernia containing bowel, please correlate for reduction. 2. Prostate gland enlarged. 3. Cardiomegaly. 4. Coronary artery atherosclerotic calcifications. 5. Large hiatal hernia. 6. Bibasilar atelectasis versus minimal infiltrate. Abdomen X-Ray 10/23/22 13:45 IMPRESSION: No radiopaque foreign body. Laboratory Results WBC 9.9 10^3/uL (4.0-10.0) 10/22/22 23:00 RBC 4.34 10^6/uL (4.1-5.3) 10/22/22 23:00 Hgb 11.4 g/dL (11.7-16.6) L 10/24/22 01:41 Hct 34.0 % (42.0-52.0) L 10/24/22 01:41 MCV 95.2 fl (80-94) H 10/22/22 23:00 MCH 32.3 pg (28.0-34.0) 10/22/22 23:00 MCHC 33.9 g/dL (30.0-36.0) 10/22/22 23:00 RDW 12.3 % (12.1-15.1) 10/22/22 23:00 Plt Count 221 10^3/cmm (130-400) 10/22/22 23:00 MPV 9.6 fL (7.4-10.4) 10/22/22 23:00 Neut % (Auto) 79.0 % 10/22/22 23:00 Lymph % (Auto) 11.1 % 10/22/22 23:00 Roane % (Auto) 7.1 % 10/22/22 23:00 Eos % (Auto) 2.0 % 10/22/22 23:00 Baso % (Auto) 0.5 % 10/22/22 23:00 Neut # (Auto) 7.78 10^3/uL (1.8-7.7) H 10/22/22 23:00 Lymph # (Auto) 1.1 10^3/uL (0.8-4.8) 10/22/22 23:00 Roane # (Auto) 0.7 10^3/uL (0.2-0.9) 10/22/22 23:00 Eos # (Auto) 0.2 10^3/uL (0.0-0.8) 10/22/22 23:00 Baso # (Auto) 0.1 10^3/uL (0.0-0.1) 10/22/22 23:00 Nucleated RBC % (auto) 0 % 10/22/22 23:00 Nucleated RBCs # 0.0 /100WBC 10/22/22 23:00 Sodium 136 mmol/L (136-145) 10/24/22 01:41 Potassium 4.3 mmol/L (3.5-5.1) 10/24/22 01:41 Chloride 106 mmol/L (98-107) 10/24/22 01:41 Carbon Dioxide 24 mmol/L (22-29) 10/24/22 01:41 Anion Gap 10.3 (5-19) 10/24/22 01:41 BUN 15 mg/dL (8-23) 10/24/22 01:41 Creatinine 1.0 mg/dL (0.7-1.2) 10/24/22 01:41 GFR Calculation Not Reportable 10/24/22 01:41 Glucose 137 mg/dL (65-115) H 10/24/22 01:41 Calculated Osmolality 285 mOsm/kg (285-295) 10/24/22 01:41 Lactate 1.1 mmol/L (0.5-2.2) 10/22/22 23:27 Calcium 8.4 mg/dL (8.5-10.5) L 10/24/22 01:41 Total Bilirubin 0.5 mg/dL (0.15-1.2) 10/22/22 23:00 AST 24 U/L (0-40) 10/22/22 23:00 ALT 19 U/L (0-41) 10/22/22 23:00 Alkaline Phosphatase 100 U/L (40-130) 10/22/22 23:00 Total Protein 7.1 g/dL (6.6-8.7) 10/22/22 23:00 Albumin 4.3 g/dL (3.5-5.2) 10/22/22 23:00 Globulin 2.8 g/dL (1.3-4.6) 10/22/22 23:00 Lipase 20 U/L (13-60) 10/22/22 23:00 Vitamin B12 257 pg/mL (232-1245) 10/24/22 01:41 TSH 0.78 uIU/mL (0.27-4.20) 10/24/22 01:41 Urine Color Yellow (Yellow) 10/23/22 00:41 Urine Appearance Clear (CLEAR) 10/23/22 00:41 Urine pH 7 (5-7) 10/23/22 00:41 Ur Specific Scenic 1.015 (1.005-1.030) 10/23/22 00:41 Urine Protein Neg (Negative) 10/23/22 00:41 Urine Glucose (UA) Norm (Normal) 10/23/22 00:41 Urine Ketones Negative (Negative) 10/23/22 00:41 Urine Blood Trace (Negative) H 10/23/22 00:41 Urine Nitrate Negative (Negative) 10/23/22 00:41 Urine Bilirubin Neg (Negative) 10/23/22 00:41 Urine Urobilinogen Norm mg/dL (Negative) 10/23/22 00:41 Ur Leukocyte Esterase Negative (Negative) 10/23/22 00:41 Urine RBC 0-4 /hpf (0-2) H 10/23/22 00:41 Urine WBC None /hpf (0-5) 10/23/22 00:41 Ur Squamous Epith Cells 0-4 /hpf (0-5) H 10/23/22 00:41 Amorphous Sediment Not Reportable 10/23/22 00:41 Urine Bacteria None /hpf (NONE) 10/23/22 00:41 Urine Mucus 1+ /hpf 10/23/22 00:41 Procedures Performed ADDENDUMEvaluation intraoperative was done by Dr. Zepeda and proximal and distal stumps of the femoral vein were reevaluated, debrided, vascular clamps were in place and running 2-0 silk sutures were done by vascular surgery to secu re the stumps and vascular clamps were then removed.? There was no evidence of bleeding and appropriate hemostasis was achieved. Addendum Dictated By: Dharmesh Sierra MD Addendum Signed By: <Electronically signed by Dharmesh Sierra MD> Signed Date/Time: 10/24/2258 Addendum Cosigned By: Operative Report Date of procedure: October 23, 2022 Pre-op diagnosis: Right groin hernia Post-op diagnosis: Right femoral hernia with incarcerated peritoneal sac,no evidence of bowel ischemia Procedure done: Exploration of the right groin Right open femoral hernia repair without mesh placement Right femoral vein ligation(see separate dictation for Dr. Zepeda) Specimens removed/disposition: Right femoral hernia sac Surgeon: Dharmesh Sierra MD-Dr. Zepeda Surgeon Chemical Laboratory Scientist Chemical Laboratory Scientist: Surgical rafi Lowery Estimated blood loss (mL): 100 Procedure: Patient was identified in the holding area and right groin was marked by myself, In-N-Out catheter was inserted revealing clear urine prior to the procedure,? a ntibiotic was given with induction, endotracheal tube was placed per anesthesia, prep and drape of both groins and lower abdomen and scrotum including the genitalia was done under the usual sterile technique. Timeout was done verifying the patient's name/date of /planned procedure destination after the procedure, all were in agreement. SCDs confirmed to be functioning, preoperative antibiotics administered per protocol, and beta shadi protocol was confirmed. ?I started with a right groin incision 1-1/2 finger above the inguinal ligament towards the pubic tubercle coinciding with the previous right groin scar, noticed to have an incarcerated hernia sac towards the medial aspect of the groin, extensive scarring was noticed, during dissection inadvertently the right femoral vein was injured during dissection yet proximal and distal control was achieved immediately, the dissection revealed that the hernia sac is a femoral hernia sac.? There was no other hernia evident. At This point I decided to open the hernia sac trim the edges as it did show some ischemic changes and was sent for permanent pathology, the communication with the abdominal cavity revealed no evidence of succus or serosanguineous output and the bowel was maintained to be viable.? In fact there was no evidence of incarcerated bowels.? I elected to close the remaining viable sac using continuous 2-0 Vicryl that was reduced back to the abdominal cavity without complications. Extensive scar tissues were appreciated.? And meticulous dissection was done. Appropriate dissection and exposure I elected to call for Dr. Zepeda for further evaluation of the proximal and distal portions of the femoral vein for potential further dissection and repair versus ligation, please see separate dictation for further vascular surgery portion of the procedure. Before arrival with Dr. Zepeda already placed interrupted PDS sutures to close the femoral canal.? Not encroaching on any neurovascular compartment. Copious and thorough irrigation was achieved there was no evidence of bleeding and appropriate closure in layers using 2-0 Vicryl in a continuous fashion followed by skin lorenza.? Lidocaine 1% was injected A KUB was obtained towards the end of the procedure to confirm no evidence of retained foreign objects Also counts of instruments, sponges and needles were completed at the end of the procedure.? I elected to place a Polk cath at the end of the procedure revealing clear urine. Scrotal support was then placed Intact dorsalis pedis artery pulsation was appreciated towards the end of the procedure of the right lower extremity Patient tolerated the procedure well and was taken to the recovery area after extubation I was present for the whole entire procedure Dictated By: Dharmesh Sierra MD Signed By: Dharmesh Sierra MD Vitals Last Vital Signs Temp 97.8 F 10/24/22 15:24 Pulse 85 10/24/22 15:24 Resp 15 10/24/22 15:24 BP 143/76 10/24/22 15:24 Pulse Ox 97 10/24/22 15:24 O2 Del Method 10/24/22 15:24 O2 Flow Rate 2 10/24/22 02:45 Discharge Plan Discharge Patient Disposition: Home Health Service Condition: Stable Prescriptions: New Maria De Jesusqujake DVT-PE Treat 30D Start 5 mg (74 tabs) tablets,dose pack See Rx Instructions .ROUTE .COMPLEX Qty: 74 0RF Rx Instructions: orally per package directions Continued aspirin 81 mg tablet,delayed release (DR/EC) 81 mg PO DAILY atorvastatin 10 mg tablet 10 mg PO DAILY cholecalciferol (vitamin D3) 400 unit capsule 400 unit PO DAILY lisinopril 2.5 mg tablet 2.5 mg PO DAILY multivitamin Tablet 1 tab PO QAM garlic 1,000 mg Capsule 1,000 mg PO DAILY Discharge Orders: Discharge Order (Routine); Ordered 10/24/22 Ordered By: Dharmesh Sierra Referrals: [facility] [Outside] Jenni Swift MD [Referring] - (Please call thursday morning to schedule a hospital follow up appointment within 3-4 days ) Dharmesh Sierra MD [Physician] - 10/29/22 3:00 pm (Return to surgery office in 1 week.) Discharge Diet: Advance as tolerated Discharge Activity: Limit activity as instructed Patient Instructions: Opioid Safety Activity Restrictions/Additional Instructions: Eliquis 10 mg twice daily for 7 days, then 5 mg twice daily Follow-up with primary care provider 3 to 4 days Postop education: 1. Patient can shower after 48 hours from surgery 2. Remove dressing tomorrow and keep open to air. Light compression of the right lower extremity 15/06 with emphasis on leg elevation while resting in bed. 3. Fall risk precautions and education patient being on anticoagulation. 4. Do not lift more than 5 pounds. 5. Do not operate heavy machinery or drive while using pain medications. 6.Contact the office or return to the ER for worsening nausea vomiting fevers or chills, or noticing any redness around incision sites or discharge. 7. Stool softeners to avoid constipation Discharge Attestations Time Spent in Discharge Care*: greater than 30 min Specific Discharge Activities: educating patient and educating and/or supporting family/caregiver Status at Discharge: Cognitive status at discharge: cognitively intact , Behavioral status at discharge: cooperative , Functional status at discharge: independent ambulation , Overall status at discharge: patient is progressing back to baseline Quality Metrics Clinical Quality Measures [ No reported AMI, CVA or VTE this stay (Except for acute DVT right lower extremity.)] Coding Level of Care Code Acute Chg FW DC note Diagnoses Delirium R41.0 DVT (deep venous thrombosis) I82.409
[2022-10-24] MEDS: apixaban 5 mg Tablet 10 MG PO (16:17)
--- NOTE | 2022-10-31 11:11 | PM.OP ---
Operative Report Date of procedure: October 31, 2022 Pre-op diagnosis: Right groin hernia Post-op diagnosis: other Post-op diagnosis: Transection of right femoral common vein Procedure done: Ligation and oversewing of right common femoral vein Pathology: none sent Surgeon: Enrico Zepeda Surgeon: Dr. Sierra Estimated blood loss (mL): 50 Findings: transected right common femoral vein with good proximal and distal control Condition: stable Disposition: PACU Brief History: I was requested for intraoperative consult on Mr. Joshi while undergoing redo right groin hernia repair. Dr. Sierra discovered a femoral hernia presented beneath the prostheic patch of prior inguinal hernia repair. Related to substantial scarring in the region, during dissection, right common femoral vein was transected. My opinion concerning repair was requested. Procedure: Dr. Sierra has dissected the region well and has good control proximally and distally of the fermoral vein. Related to the distance between the divided ends, along with scarring in the region, I do not feel adequate length can be dissected free to allow for a tension-free reapproximation of the vein. As well, repair of the femoral hernia defect will further place tension in the region should scarring over this repair occur. I have therefore recommended oversewing of the femoral vein ends and not attempt reconstitution. This was performed with monofilament and silk suture. Divided ends are hemostatic. Dr. Sierra proceeded with wound closure. We have recommended an interim of anticoagulation. I would expect lower extremity swelling for sometime until collateralization has occurred. Lower extremity compression would be of benefit.
== END 2022-10-24 18:10 | disposition home health service (06) | DRG 351 ==
LOC: ER 10-23 01:03 → MEDSURG 10-23 02:36
PROVIDERS: Internal Medicine; Thoracic Surgery (Cardiothoracic Vascular Surgery); Admitting Provider Surgery; Emergency Provider Emergency Medicine; Visit Provider Surgery
PROC: 0YQ70ZZ Repair Right Femoral Region, Open Approach (ICD-10-PCS; principal; 2022-10-23 12:00)
PROC: 06LM0ZZ Occlusion of Right Femoral Vein, Open Approach (ICD-10-PCS; 2022-10-23 12:00)
DX: K41.30 Unilateral femoral hernia, with obstruction, without gangrene, not specified as recurrent (principal); I82.411 Acute embolism and thrombosis of right femoral vein; I97.52 Accidental puncture and laceration of a circulatory system organ or structure during other procedure; K40.90 Unilateral inguinal hernia, without obstruction or gangrene, not specified as recurrent; I10 Essential (primary) hypertension; E78.5 Hyperlipidemia, unspecified; R41.0 Disorientation, unspecified; E78.00 Pure hypercholesterolemia, unspecified; Y83.8 Other surgical procedures as the cause of abnormal reaction of the patient, or of later complication, without mention of misadventure at the time of the procedure
CPT/HCPCS: 36415; 51702; 74018; 74177; 80048; 80053; 81001; 82607; 83605; 83690; 84443; 85014; 85018; 85025; 88302; 93971; 96365; 96372; 96375; 99285; G0378; J0131; J0330; J1170; J1630; J1650; J2250; J2270; J2405; J2543; J2704; J2710; J3010; J3490; J7030; Q9967

== ENCOUNTER 2022-10-27 14:15 | Emergency (ER) | payer MEDICARE, OTHER, SELFPAY ==
[2022-10-27 14:37] VITALS: BP 124/71; PULSE 71; RESP 16; TEMP 36.8; O2SAT 99
--- NOTE | 2022-10-27 16:05 | PC.NURSE ---
WHILE IN LOBBY WITH PT IS IN NAD.
[2022-10-27 16:26] LABS: Basophils % 0.4 %; Eosinophils # 0.2 10^3/uL (0.0-0.8); Eosinophils % 2.5 %; Hematocrit 30.7 % (42.0-52.0); Hemoglobin 10.5 g/dL (11.7-16.6); Lymphocytes # 0.8 10^3/uL (0.8-4.8); Mean Corpuscular HGB Conc 34.2 g/dL (30.0-36.0); Mean Corpuscular Hemoglobin 32.8 pg (28.0-34.0); Mean Corpuscular Volume 95.9 fl (80-94); Mean Platelet Volume 9.7 fL (7.4-10.4); Monocytes # 0.8 10^3/uL (0.2-0.9); Monocytes % 10.5 %; Nucleated Red Blood Cells % 0 %; Platelet Count 243 10^3/cmm (130-400); Red Cell Distribution Width 12.4 % (12.1-15.1); White Blood Count 7.9 10^3/uL (4.0-10.0)
[2022-10-27 16:31] LABS: Lactic Sepsis W/Reflex 0.7 mmol/L (0.5-2.2)
[2022-10-27 16:42] LABS: NT Pro B Type Natriuretic Pept 202 pg/mL (0-450); Procalcitonin 0.02 ng/mL (0-0.5)
[2022-10-27 16:55] LABS: Alanine Aminotransferase 19 U/L (0-41); Albumin Level 3.6 g/dL (3.5-5.2); Alkaline Phosphatase 75 U/L (40-130); Anion Gap 13.9 (5-19); Aspartate Amino Transferase 25 U/L (0-40); Blood Urea Nitrogen 10 mg/dL (8-23); C Reactive Protein 102.9 mg/L (0.0-4.9); Calcium 8.7 mg/dL (8.5-10.5); Carbon Dioxide 24 mmol/L (22-29); Chloride 96 mmol/L (98-107); Glucose 108 mg/dL (65-115); Osmolality Calculated 270 mOsm/kg (285-295); Potassium 3.9 mmol/L (3.5-5.1); Sodium 130 mmol/L (136-145); Total Protein 6.6 g/dL (6.6-8.7)
--- NOTE | 2022-10-27 17:33 | PC.NURSE ---
ATTEMPTED TO BRING PT BACK TO A ROOM. PT REFUSES STATING, I GOT TO GO HOME AND TAKE CARE OF MY GIRLFRIEND SHE 89 YEARS OLD . ASSISTED PT WITH SHOE AND PROVIDED PT WITH BLANKETS. PT IS A&OX3 ANSWERING QUESTIONS APPROPRIATELY.
== END 2022-10-27 17:35 | disposition left against medical advice (07) ==
PROVIDERS: Emergency Medicine; Emergency Provider Family Medicine
DX: Z53.21 Procedure and treatment not carried out due to patient leaving prior to being seen by health care provider (principal)
CPT/HCPCS: 36415; 80053; 83605; 83880; 84145; 85025; 86140; 87040; 99283

== ENCOUNTER → 2022-10-29 15:01 | Outpatient (BNVA) | payer MEDICARE, OTHER, SELFPAY | PROVIDERS: PCP Family Medicine; Visit Provider Surgery | DX: Z09 Encounter for follow-up examination after completed treatment for conditions other than malignant neoplasm (principal); M79.89 Other specified soft tissue disorders | CPT/HCPCS: 99024 ==

== ENCOUNTER → 2022-10-31 13:58 | Outpatient (BNVA) | payer MEDICARE, OTHER, SELFPAY | PROVIDERS: PCP Family Medicine; Visit Provider Surgery | DX: I96 Gangrene, not elsewhere classified (principal); I89.0 Lymphedema, not elsewhere classified; L97.819 Non-pressure chronic ulcer of other part of right lower leg with unspecified severity | CPT/HCPCS: 11042; 11045; 99213 ==

== ENCOUNTER 2023-06-10 12:47 | Emergency (ER) | payer MEDICARE, OTHER, MEDICAID, SELFPAY ==
[2023-06-10 12:51] VITALS: BP 99/56; PULSE 50; TEMP 36.8; O2SAT 97; BMI 23.1
--- NOTE | 2023-06-10 12:55 | W.ED.ABDPA2 ---
HPI - Abdominal Pain General: Chief Complaint: Urogenital-Male Stated Complaint: GROIN PAIN Time Seen by Provider: 06/10/23 12:55 History of Present Illness: Mr. Joshi is a 77-year-old gentleman with history of inguinal hernia repair presented the emergency department for concern over groin pain. He reports 2 or 3 months ago having onset of atraumatic pain which he describes as in the middle of his scrotum. Since that time has had intermittent episodes. These are typically worse when he is standing. He denies feeling a bulge or swelling in the scrotum. Denies urinary symptoms. He has not had change in bowel habits, no obstructive symptoms. Denies other changes in health. No other specific changes in health, exacerbating, or alleviating factors identified. Onset (ago): month(s) Pain Consistency: intermittent Severity: moderate Exacerbating factors: other Relieving factors: nothing Associated Symptoms: Reports no associated symptoms Review of Systems General: Reports: 10 or more systems reviewed and unremarkable except in HPI and below PFSH ED PFSH: Medical History Delirium DVT (deep venous thrombosis) Hypercholesteremia Hypertension Right groin hernia Surgical History History of right inguinal hernia repair (11/04/19) Dr. Sierra Family History Other Diabetes Heart disease Denies family history of Anesthesia complication Bleeding disorder Social History Smoking and tobacco status: never smoked Alcohol intake: never Substance/Drug Use: never Lives independently: Yes Household members: significant other Current occupational status: retired Physical Exam Const: COMMON NORMALS: alert GENERAL APPEARANCE: cooperative and well developed HENMT: COMMON NORMALS: normocephalic and atraumatic HEAD & SCALP: normocephalic and atraumatic Eye: COMMON NORMALS: conjunctivae normal CONJUNCTIVA: Yes conjunctivae normal SCLERA: sclerae normal Neck/C-Spine: COMMON NORMALS: supple GENERAL: Yes trachea midline Resp: COMMON NORMALS: clear to auscultation bilaterally EFFORT & INSPECTION: Yes able to speak in complete sentences AUSCULTATION: clear to auscultation bilaterally Cardio: COMMON NORMALS: regular rate and regular rhythm RATE: regular rate RHYTHM: regular rhythm GI: COMMON NORMALS: Soft to palpation PALPATION: Yes Soft to palpation and No Tenderness to palpation present (GI) : OTHER: Performed with political science professor present. Unremarkable circumcised penis. Testicles nontender and uniform to palpation. No evidence of torsion. No palpable hernia or mass. No scrotal abnormalities or cellulitis Extremity: GENERAL: Yes normal exam except as noted and No edema Neuro: COMMON NORMALS: moves all extremities SENSORIUM/ORIENTATION: Yes alert and No Orientation impaired Psych: COMMON NORMALS: mental status grossly normal and Normal thought process present THOUGHT PROCESS: Normal thought process present Course Vital Signs: Vital signs: Vital Signs Temperature 98.3 F 06/10/23 12:51 Pulse Rate 61 06/10/23 13:41 Respiratory Rate 18 06/10/23 13:41 Blood Pressure 137/72 06/10/23 13:41 Pulse Oximetry 97 06/10/23 12:51 Oxygen Delivery Me thod Room Air 06/10/23 12:51 MDM - Abdominal Pain Medical Decision Making 77-year-old gentleman presenting the emergency department for increasing groin pain. He does have a history of hernia repair and feels increased pain with standing. No palpable hernia appreciated on clinical exam. Patient is nontoxic. Urinalysis with possible urinary tract infection. Ultrasound negative for acute abnormality. X-ray negative. The results of ED evaluation were discussed with the patient including prescriptions and/or symptomatic cares (if applicable) including appropriate and responsible use, followup plan, and return precautions. The patient verbalized understanding and felt safe for discharge. Medical Records I reviewed the patient's medical records. Lab Data I reviewed the patient's lab results. Labs/Radiology: Radiology Impressions Soft Tissue Ultrasound 06/10/23 13:01 IMPRESSION: 1. 4.7 x 1.86 cm ovoid hypoechoic solid mass in the right inguinal region most likely an enlarged hyperemic lymph node. There are several other mildly enlarged lymph nodes in this region. 2. No sign of obvious bowel containing hernia in this region. Pelvis X-Ray 06/10/23 13:08 IMPRESSION: 1. No pelvic fracture or bone destruction. 2. Degenerative changes of the hips, lower lumbar spine and SI joints. Laboratory Results Urine Color Yellow (Yellow) 06/10/23 14:30 Urine Appearance Sl hazy (CLEAR) A 06/10/23 14:30 Urine pH 5 (5-7) 06/10/23 14:30 Ur Specific [place] 1.020 (1.005-1.030) 06/10/23 14:30 Urine Protein Trace (Negative) 06/10/23 14:30 Urine Glucose (UA) Norm (Normal) 06/10/23 14:30 Urine Ketones 1+ (Negative) H 06/10/23 14:30 Urine Blood Neg (Negative) 06/10/23 14:30 Urine Nitrate Negative (Negative) 06/10/23 14:30 Urine Bilirubin Neg (Negative) 06/10/23 14:30 Urine Urobilinogen 1 mg/dL (Negative) H 06/10/23 14:30 Ur Leukocyte Esterase 2+ (Negative) H 06/10/23 14:30 Urine RBC 0-4 /hpf (0-2) H 06/10/23 14:30 Urine WBC 10-15 /hpf (0-5) H 06/10/23 14:30 Ur Squamous Epith Cells 0-4 /hpf (0-5) H 06/10/23 14:30 Amorphous Sediment Not Reportable 06/10/23 14:30 Urine Bacteria None /hpf (NONE) 06/10/23 14:30 Urine Mucus 4+ /hpf 06/10/23 14:30 Discharge Plan Discharge Patient Disposition: Home Clinical Impression: Groin pain, Acute UTI, Inguinal lymphadenopathy Condition: Stable Prescriptions: New ciprofloxacin HCl 500 mg tablet 500 mg PO Q12H Qty: 20 0RF No Action aspirin 81 mg tablet,delayed release (DR/EC) 81 mg PO DAILY atorvastatin 10 mg tablet 10 mg PO DAILY cholecalciferol (vitamin D3) 400 unit capsule 400 unit PO DAILY lisinopril 2.5 mg tablet 2.5 mg PO DAILY multivitamin Tablet 1 tab PO QAM sulfamethoxazole-trimethoprim [Bactrim DS] 800-160 mg tablet 1 tab PO BID 10 Days Qty: 20 0RF garlic 1,000 mg Capsule 1,000 mg PO DAILY Eliquis DVT-PE Treat 30D Start 5 mg (74 tabs) tablets,dose pack See Rx Instructions .ROUTE .COMPLEX Qty: 74 0RF Rx Instructions: orally per package directions Discharge Orders: Discharge ED (Routine); Ordered 06/10/23 Ordered By: Benny Kolm Referrals: Jenni Swift MD [Primary Care Provider] - Discharge Diet: Usual diet Discharge Activity: Resume usual activity Patient Instructions: Urinary Tract Infection in Men (ED), Lymphadenopathy (ED), Groin Pain (ED) Activity Restrictions/Additional Instructions: Thank you for visiting the emergency department. You were seen and eval for groin pain. The exact cause your symptoms is unclear however may be related to enlarged lymph node with urinary tract infection. This will be treated with antibiotics. You do require outpatient follow-up and reevaluation to ensure that you are enlarged lymph node has resolved or further diagnostic imaging and testing for other possible sources. You may use [id number] medications such as acetaminophen and ibuprofen for pain however please do not exceed the daily recommended dosage as listed on the packaging and please keep in mind that many namebrand medications contain the same active ingredients. Please avoid these medications if previously instructed to do so by another physician due to other underlying medical condition. Follow-up with your primary care provider. Return for uncontrolled symptoms or anything else that you are concerned about and feel needs emergency department evaluation. 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
--- NOTE | 2023-06-10 13:01 | US_ITS ---
WS: [id number] Exam: US soft tissue/extremity [id number] Date/Time of Exam: 06/10/2023 1:55 PM Reason For Exam: Intermittent pain, worse with standing, hx of hernia repair The right inguinal region is targeted for ultrasound evaluation. In the subcutaneous soft tissues there is a prominent ovoid hypoechoic soft tissue mass which is hype remic. This is most likely an enlarged lymph node. This measures approximately 4.7 cm at greatest [place] gth and 1.86 cm at greatest short axis dimension. There are several other smaller prominent lymph nod es in this region. There was no sign of obvious hernia or bowel in this region. The right common femo ral artery and vein are unremarkable as visualized. Recommendations: If the patient does not respond to conservative management, contrast CT scanning of the abdomen and pelvis could be helpful for further workup. US/US soft tissue/extremity [id number] IMPRESSION: 1. 4.7 x 1.86 cm ovoid hypoechoic solid mass in the right inguinal region most likely an enlarged hyperemic lymph node. There are several other mildly enlarge d lymph nodes in this region. 2. No sign of obvious bowel containing hernia in this region.
--- NOTE | 2023-06-10 13:08 | XR_ITS ---
WS: [id number] Exam: XR pelvis 1-2V* [id number] Date/Time of Exam: 06/10/2023 1:14 PM Reason For Exam: groin pain when standing No acute pelvic fracture. No sign of bone destruction. [id number] degenerative changes of the h ips. SI joints show mild DJD. Degenerative change of the lower lumbar spine. XR/XR pelvis 1-2V* [id number] IMPRESSION: 1. No pelvic fracture or bone destruction. 2. Degenerative changes of the hips, lower lumbar spine and SI joints.
[2023-06-10 13:41] VITALS: BP 137/72; PULSE 61; RESP 18
[2023-06-10 15:03] LABS: Urine Appearance SL Hazy (CLEAR); Urine Color Yellow (Yellow)
[2023-06-10 15:04] LABS: Add Urine Microscopic? YES; Bilirubin Urine Neg (Negative); Blood Urine Neg (Negative); Glucose Urine UA Norm (Normal); Ketones Urine 1+ (Negative); Leukocyte Esterase Urine 2+ (Negative); Nitrate Urine Negative (Negative); Protein Urine Trace (Negative); RBC Urine 0-4 /hpf (0-2); Squamous Epithelial Cell Urine 0-4 /hpf (0-5); Urobilinogen Urine 1 mg/dL (Negative); pH Urine 5 (5-7)
[2023-06-10 15:05] LABS: Add Urine Culture? No; Mucus Urine 4+ /hpf
== END 2023-06-10 15:40 | disposition home or self-care (01) ==
PROVIDERS: Emergency Provider Emergency Medicine; PCP Family Medicine
DX: N39.0 Urinary tract infection, site not specified (principal); R59.0 Localized enlarged lymph nodes; Z79.82 Long term (current) use of aspirin; I10 Essential (primary) hypertension
CPT/HCPCS: 72170; 76882; 81001; 99285